=== PATIENT | female | born 1945 | race Hispanic/Latino ===

== ENCOUNTER 2021-04-25 17:33 | Emergency (ER) | payer MEDICARE ==
[~2021-04-25] VITALS: Ht 152.4 cm; Wt 54.4 kg
[2021-04-25 17:36] VITALS: BP 156/76
[2021-04-25 18:39] VITALS: BP 142/65
[2021-04-25 18:42] LABS: HEMATOCRIT 37.7 % (36-48); MEAN CORPUSCULAR HEMOGLOBIN 29.9 pg (27.0-33.0); MEAN CORPUSCULAR HGB CONC 34.2 g/dL (32.0-36.0); MEAN CORPUSCULAR VOLUME 87.5 fL (79-99); PLATELET COUNT (AUTO) 298 K/uL (130-400); RED BLOOD CELL COUNT(AUTO) 4.31 MIL/uL (4.00-5.50); RED CELL DISTRIBUTION WIDTH 12.5 % (11.0-15.5); WHITE BLOOD COUNT (AUTO) 7.6 K/uL (4.8-10.8)
[2021-04-25 18:59] LABS: CREATININE 1.1 mg/dL (0.5-1.5); POTASSIUM 4.4 mmol/L (3.5-5.1)
[2021-04-25 19:03] LABS: ALBUMIN 3.9 g/dL (3.5-5.0); BILIRUBIN,TOTAL 0.5 mg/dL (0.2-1.0); TOTAL PROTEIN, SERUM 7.1 g/dL (6.0-8.3)
[2021-04-25 20:13] LABS: LYMPHOCYTES % (MANUAL) 9 % (22-44); MONOCYTES % (MANUAL) 8 % (2-9); SEGMENTED NEUTROPHILS % 83 % (40-70)
[2021-04-25 20:16] LABS: MAN.DIFF COMMENT-IMPRESSION MANUAL DIFFERENTIAL
[2021-04-25 20:17] LABS: PLATELET MORPHOLOGY COMMENT ADEQUATE
[2021-04-25] MEDS ORDERED: CLIN300C10 PO (21:19)
[2021-04-25] MEDS ORDERED: A20IH1 IH (21:19)
[2021-04-25] MEDS ORDERED: PRED20TA3 PO (21:19)
[2021-04-25] MEDS ORDERED: SOLU-MEDROL 125MG VIAL IM ONE (21:30)
[2021-04-25] MEDS ORDERED: IPRATROPIUM/ALBUTEROL SULFATE 3 ML SOLUTION IH ONE (21:30)
[2021-04-25] MEDS ORDERED: CLINDAMYCIN 150 MG CAP PO ONE (21:30)
== END 2021-04-25 22:15 | disposition home or self-care (01) ==
LOC: EDH 17:42
DX: J45.901 Unspecified asthma with (acute) exacerbation (principal); Z20.822 Contact with and (suspected) exposure to COVID-19; E11.9 Type 2 diabetes mellitus without complications; E78.00 Pure hypercholesterolemia, unspecified; I10 Essential (primary) hypertension; Z88.0 Allergy status to penicillin; Z88.1 Allergy status to other antibiotic agents; Z88.2 Allergy status to sulfonamides; Z88.5 Allergy status to narcotic agent
CPT/HCPCS: 36415; 71045; 80053; 84484; 85025; 87635; 87804 ×2; 93005; 94640; 96372; 99285; C9803; J2930

== ENCOUNTER 2021-12-12 17:39 | Emergency (ER) | payer MEDICARE ==
[~2021-12-12] VITALS: Ht 152.4 cm; Wt 54.4 kg
[~2021-12-12 17:39] MED LIST: A20IH1 IH; CLIN-141 PO; PRED20TA3 PO
[2021-12-12 19:06] VITALS: BP 135/74
== END 2021-12-12 19:12 | disposition home or self-care (01) ==
LOC: EDH 17:39 → EDBD 17:39 → EDH 19:12
DX: S50.12XA Contusion of left forearm, initial encounter (principal); E11.9 Type 2 diabetes mellitus without complications; Z98.890 Other specified postprocedural states; Z79.899 Other long term (current) drug therapy; Z88.8 Allergy status to other drugs, medicaments and biological substances; Z88.5 Allergy status to narcotic agent; Z88.2 Allergy status to sulfonamides; Z88.1 Allergy status to other antibiotic agents; W22.8XXA Striking against or struck by other objects, initial encounter; Y93.89 Activity, other specified; Y92.89 Other specified places as the place of occurrence of the external cause; Y99.8 Other external cause status
CPT/HCPCS: 73090